=== PATIENT | female | born 1940 | race Caucasian/White ===

== ENCOUNTER 2024-05-20 17:06 | Emergency (ER) | payer MEDICARE ==
[~2024-05-20] VITALS: Ht 167.6 cm; Wt 76.0 kg
[2024-05-20 17:27] VITALS: BP 149/73
[2024-05-20] MEDS ORDERED: IPRATROPIUM-Albuterol 0.5MG-2.5MG/3 ML NEB ONE (17:55)
[2024-05-20] MEDS ORDERED: levoFLOXacin 500 MG TAB PO ONE (18:25)
[2024-05-20] MEDS ORDERED: LEVOFLOXACIN500MG PO (18:27)
[2024-05-20] MEDS ORDERED: VENTOLIN HFA108 MCG IN (18:27)
[2024-05-20 18:31] VITALS: BP 149/73
== END 2024-05-20 18:37 | disposition home or self-care (01) ==
LOC: ED 17:06
DX: J32.9 Chronic sinusitis, unspecified (principal); I10 Essential (primary) hypertension; Z20.822 Contact with and (suspected) exposure to COVID-19